=== PATIENT | male | born 1985 | race Caucasian/White ===

== ENCOUNTER 2022-04-11 20:15 | Emergency (ER) | payer BC, OTHER ==
[2022-04-11 20:46] VITALS: PULSE 97; BMI 48.8
[2022-04-11] MEDS ORDERED: NITROGLYCERIN 2% OINTMENT - 1GM PACKET TD ONE (21:20)
[2022-04-11] MEDS ORDERED: ASPIRIN 325 MG ENTERIC COATED TABLET (FP) PO ONE (21:20)
[2022-04-11] MEDS ORDERED: ALPRAZolam 0.25 MG TABLET PO ONE (21:20)
[2022-04-11] MEDS ORDERED: MAG HYDROX/AL HYDROX/SIMETH 30 ML UNIT-DOSE CUP PO ONE (22:00)
[2022-04-11] MEDS ORDERED: FAMOTIDINE 20 MG/50 ML IVPB 20 MG/50 ML MG IVPB ONE (22:00)
[2022-04-11] MEDS ORDERED: ASPIRIN 325 MG ENTERIC COATED TABLET (FP) ONE (22:22)
[2022-04-11] MEDS ORDERED: MAG HYDROX/AL HYDROX/SIMETH 30 ML UNIT-DOSE CUP ONE (22:23)
[2022-04-11] MEDS ORDERED: ALPRAZolam 0.25 MG TABLET ONE (22:23)
[2022-04-11 22:53] LABS: BASO % 0.4 % (0-2.0); EOS % 0.4 % (0-4.5); HEMATOCRIT 39.9 % (35.4-49); HEMOGLOBIN 13.9 GM/dL (11.7-16.9); LYMPH % 13.2 % (8-40); MCH 34.7 pg (25.7-33.7); MCHC 34.8 g/dl (32.0-35.9); MEAN CELL VOLUME 99.8 fl (80-96); MEAN PLT VOLUME 8.2 fl (7.5-11.1); MONO % 6.4 % (3.8-10.2); NEUT % 79.6 % (42.8-82.8); PLATELET COUNT 179 10^3/uL (134-434); RDW 14.4 % (11.9-15.9); WHITE BLOOD COUNT 5.9 K/mm3 (4.0-10.0)
[2022-04-11 23:12] LABS: CALCIUM 9.8 mg/dL (8.5-10.1)
[2022-04-11 23:15] LABS: CREATININE 0.9 mg/dL (0.55-1.3)
[2022-04-11 23:17] LABS: BILIRUBIN,TOTAL 0.7 mg/dL (0.2-1); TOT PROT 7.7 g/dl (6.4-8.2)
[2022-04-11 23:30] VITALS: BP 140/94; TEMP 98.7
== END 2022-04-12 01:59 | disposition home or self-care (01) ==
LOC: JER 20:15
PROC: 3E033NZ Introduction of Analgesics, Hypnotics, Sedatives into Peripheral Vein, Percutaneous Approach (ICD-10-PCS; principal; 2022-04-11)
DX: R07.89 Other chest pain (principal)
CPT/HCPCS: 36415; 71045-TC-FY; 80053; 84484; 85025; 93005; 93010; 99284-25

== ENCOUNTER 2022-04-19 12:40 | Observation (INO) | payer BC, OTHER ==
[2022-04-19] MEDS ORDERED: SODIUM CHLORIDE 1,000 ML IV STA ×3 (12:46→16:50)
[2022-04-19 12:59] VITALS: BMI 43.5
[2022-04-19 13:42] LABS: CALCIUM 9.6 mg/dl (8.5-10)
[2022-04-19 14:15] LABS: HEMATOCRIT 42.1 % (35.4-49); HEMOGLOBIN 14.8 G/dL (11.7-16.9); MCH 34.7 pg (25.7-33.7); MCHC 35.1 g/dl (32.0-35.9); MEAN CELL VOLUME 98.8 fl (80-96); MEAN PLT VOLUME 9.1 fl (7.5-11.1); RBC 4.26 10^6/uL (4.00-5.60); RDW 13.4 % (11.9-15.9); WHITE BLOOD COUNT 7.8 10^3/uL (4.0-10.8)
[2022-04-19 14:27] LABS: PLATELET ESTIMATE ADEQUATE
[2022-04-19] MEDS ORDERED: SODIUM CHLORIDE 1,000 ML IV SCH (14:45)
[2022-04-20 02:00] VITALS: TEMP 97.9
[2022-04-20 06:28] VITALS: BP 112/65; PULSE 83
[2022-04-20 08:07] LABS: CALCIUM 8.7 mg/dl (8.5-10); CREATININE 1.3 mg/dl (0.55-1.3); MAGNESIUM 2.3 mg/dL (1.8-2.4)
== END 2022-04-20 09:59 | disposition home or self-care (01) ==
LOC: FER 12:40 → FM/S 17:10
PROVIDERS: ADMIT Internal Medicine; ATTEND Nurse Practitioner Acute Care
PROC: 3E0337Z Introduction of Electrolytic and Water Balance Substance into Peripheral Vein, Percutaneous Approach (ICD-10-PCS; principal; 2022-04-19)
DX: E86.0 Dehydration (principal); N17.9 Acute kidney failure, unspecified; I10 Essential (primary) hypertension; R79.89 Other specified abnormal findings of blood chemistry; E87.1 Hypo-osmolality and hyponatremia; E66.9 Obesity, unspecified; Z68.41 Body mass index [BMI] 40.0-44.9, adult; Z98.84 Bariatric surgery status
CPT/HCPCS: 36415; 80048; 81003; 82550; 82553; 83735; 85025; 93005; 99285-25; C9803-CS; G0378; U0003; U0005